=== PATIENT | male | born 1995 | race Caucasian/White ===

== ENCOUNTER 2025-05-30 07:46 | Outpatient (REF) | payer BC, SELFPAY ==
[2025-05-30 12:30] LABS: Chlamydia pneumoniae PCR Not Detected (Not Detect.); Coronavirus 229E PCR Not Detected (Not Detect.); Coronavirus HKU1 PCR Not Detected (Not Detect.); Coronavirus NL63 PCR Not Detected (Not Detect.); Coronavirus OC43 PCR Not Detected (Not Detect.); RSV PCR Not Detected (Not Detect.); Rhino/Enterovirus PCR Not Detected (Not Detect.)
[2025-05-30 13:00] LABS: Influenza A H1 PCR Not Detected (Not Detect.); Influenza A H1-2009 PCR Not Detected (Not Detect.); Influenza A H3 PCR Not Detected (Not Detect.); SARS-CoV-2 PCR Detected (Not Detect.)
== END 2025-05-30 07:47 | disposition home or self-care (01) ==
LOC: HO.LAB 07:46
PROVIDERS: Physician Assistant; PCP Pediatrics
DX: J06.9 Acute upper respiratory infection, unspecified (principal); J01.90 Acute sinusitis, unspecified; R09.89 Other specified symptoms and signs involving the circulatory and respiratory systems; B97.89 Other viral agents as the cause of diseases classified elsewhere
CPT/HCPCS: 87633

== ENCOUNTER 2025-05-30 07:46 | Outpatient (AMB) | payer BC, SELFPAY ==
--- NOTE | 2025-05-30 07:48 | AM.OFFWIN_ITS ---
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 - Symptoms began after a dental procedur e with Novocaine, leading to sinus congestion and joint aches. - Sinus congestion is left-sided with ea r pressure and blockage, and the patient has a history of seasonal allergies. - Persistent chest congestion and cough have been present since symptom onset, with limited relief from OTC medications. - No fever, shortness of breath, or asth ma history reported. Physical Exam General: Cooperative, healthy appearing, comfortable and no acute distress Orientation/consciousness: Patient oriented x3 Limitations: No limitations Head: Normal to inspection Ears: Hearing grossly normal bilaterally, external ears normal, left TM with erythema, right TM normal Nose: Normal external nose present, Normal nares present and No nasal discharge present Face and sinus: Normal facial exam and Yes sinuses tender-maxillary bilateral Mouth: Normal oral and palatal mucosa present and moist mucous membranes Throat: Yes tonsils normal, Yes uvula midline. Posterior oropharynx erythema, no exudates Eyes: Appearance normal, both eyes and all related structures Neck: Normal visual inspection, full ROM Respiratory: Normal respiratory effort, able to speak in complete sentences, no respiratory distress, not tachypneic, no tripod positioning and no use of accessory muscles Skin: No rashes or lesions noted Neuro: Patient oriented x3 Extremities: Normal to inspection and Yes no clubbing, cyanosis or edema Review of Systems - General: Denies fever - Respiratory: Reports chest congestion and cough; denies dyspnea - ENT: Reports sinus congestion and ear pressure; denies sore throat - Allergic/Immunologic: Reports history of seasonal allergies All systems reviewed and are unremarkable except as noted in HPI Physical Exam Vital Signs: Last Vital Signs Temp 98.9 F 05/30/25 07:49 Pulse 69 05/30/25 07:49 Resp 16 05/30/25 07:49 BP 118/70 05/30/25 07:49 Pulse Ox 97 05/30/25 07:49 Oxygen Delivery Method Room Air 05/30/25 07:49 BMI result Body Mass Index 28.9 Assessment & Plan Assessment & Plan (1) Acute viral sinusitis: Code(s): J01.90 - Acute sinusitis, unspecified; B97.89 - Other viral agents as the cause of diseases classified elsewhere Plan: Plan Patient was informed and verbally consented to the use of an ambient scribe for clinic note documentation during this visit. Acute Viral Sinusitis - VSS, pt well appearing and PE remarkable for maxillary sinus tenderness - Conducted a viral panel to identify potential viral pathogens. - Recommended nasal irrigation and Flonase for symptomatic relief. - Prescribed SoluMedrol for sinus pressure and inflammation. - Advised use of Sudafed for additional relief, with instructions to obtain it from behind the pharmacy counter. Orders: Orders Resp Pathogen Panel - [facility] Today J06.9 - Acute upper respiratory infection, unspecified Medications: New methylprednisolone PO PER PKG DIR for 6 days 21 ea 0RF Coding Level of Care Code New Pt Level 3 (20924) Diagnoses Acute viral sinusitis J01.90; B97.89
--- OUTSIDE RECORDS SUMMARY | 2025-05-30 07:48 | XMS_ITS | Clinical Summary ---
Author Organization [facility] Address [address] [place] [phone] Phone Care Team Providers Care Clinical Geneticist Name Role Phone Unavailable Primary Care Provider Unavailabl e Immunizations Immunization Administration Dates Next Due DTaP 5 05/22/2000, 7,07/07/1995, 995,02/08/1995 Hep B, ped/adol 10/06/1995,01/06/1995,1994 Hib (PRP-T) 03/09/1996, 5,04/14/1995, 995 IPV 09/12/1996,04/14/1995,02/08/1995 MMR 05/22/2000,03/09/1996 Meningococcal Conj (Menactra) MCV4P 07/07/2006 OPV 05/22/2000 Tdap 07/07/2006 Varicella 01/11/2009,11/26/1998 Family History Relation Name Status Comments Father Alive Father: Hyperte nsion Mother Alive Mother: Hyperte nsion Social History Tobacco Use Types Packs/Day Years Used Date Smoking Tobacco: Never Assessed Sex and Gender Information Value Date Recorded Sex Assigned at Not on file Legal Sex Male 4:30 PM EDT Gender Identity Not on file Sexual Orientation Not on file Last Filed Vital Signs Vital Sign Reading Time Taken Comments Blood Pressure 140/78 05/12/2010 12:00 AM EDT Pulse - - Temperature - - Respiratory Rate - - Oxygen Saturation - - Inhaled Oxygen Concentration - - Weight 68.9 kg (152 lb) 05/12/2010 12:00 AM EDT Height 172.2 cm (5' 7.8 ) 05/12/2010 12:00 AM ED T Body Mass Index 23.25 05/12/2010 12:00 AM EDT Plan of Treatment Health Maintenance Due Date Last Done Comments Hepatitis B Vaccines (3 of 3 - 3-dose series) 12/01/1995 10/06/1995, 01/06/1995, 1994 DTaP,Tdap,and Td Vaccines (7 - Td or Tdap) 07/07/2016 07/07/2006, 05/22/2000, 12/11/1996, Additional history exists HPV Vaccines (1 - 3-dose SCDM series) 2021 Influenza Vaccines (#1) 2025 COVID-19 Vaccine (2024- season) 2025 HIB Vaccines Completed 03/09/1996, 06/23, 04/14/1995, Additional history exists IPV Vaccines Completed 05/22/2000, 08/24, 04/14/1995, Additional history exists MMR Vaccines Completed 05/22/2000, 03/09/1996 Meningococcal Vaccine Aged Out 07/07/2006 No ever phil eligible based on patient's age to complete this topic Varicella Vaccines Completed 01/11/2009, 11/26/1998 Hepatitis A Vaccines Aged Out No long er eligible based on patient's age to complete this topic Men B Vaccine Aged Out No longer elig ible based on patient's age to complete this topic Pneumococcal Vaccine Aged Out No long er eligible based on patient's age to complete this topic
--- OUTSIDE RECORDS SUMMARY | 2025-05-30 07:48 | XMS_ITS | Clinical Summary ---
Author Organization [facility] it Address [address] [place] [address] Care Team Providers Care Clamp Forklift Operator Name Role Phone Unavailable Primary Care Provider Unavailabl e Social History Tobacco Use Types Packs/Day Years Used Date Smoking Tobacco: Never Assessed Sex and Gender Information Value Date Recorded Sex Assigned at Not on file Legal Sex Male 12:46 AM EST Gender Identity Not on file Sexual Orientation Not on file Plan of Treatment Health Maintenance Due Date Last Done Comments DTaP,Tdap,and Td Vaccines (1 - Tdap) 2013 Hepatitis B Vaccines (1 of 3 - 19+ 3-dose series) 2013 HPV Vaccines (1 - 3-dose SCD M series) 2021 Depression Screening 08/23/2024 COVID-19 Vaccine (1 - 2023-2 5 season) 2025 Influenza Vaccine (#1) 2025 RSV Immunization Adult Patie nts (1 - 1-dose 75+ series) 2069 HIB Vaccines Aged Out No longer eligi ble based on patient's age to complete this topic Hepatitis A Vaccines Aged Out No long er eligible based on patient's age to complete this topic IPV Vaccines Aged Out No longer eligi ble based on patient's age to complete this topic MMR Vaccines Aged Out No longer eligi ble based on patient's age to complete this topic Meningococcal ACWY Vaccine Aged Out N o longer eligible based on patient's age to complete this topic Meningococcal B Vaccine Aged Out No l onger eligible based on patient's age to complete this topic Pneumococcal Vaccine: Pediat rics (0 to 5 Years) and At-Risk Patients (6 to 49 Years) Aged Out No longer eligible b ased on patient's age to complete this topic RSV Immunization Patients Un yoselin 20 months Aged Out No longer eligible b ased on patient's age to complete this topic Varicella Vaccines Aged Out No longer eligible based on patient's age to complete this topic
--- OUTSIDE RECORDS SUMMARY | 2025-05-30 07:48 | XMS_ITS | Encounter Summary ---
Author Organization [facility] Address [address] [place] [phone] Phone Care Team Providers Care Waiter/Waitress Bar Name Role Phone Elijah Swartz MD Primary Care Provider Sathya edge Encounter Details Date Type Department Care Team (Late st Contact Info) Description 04/08/2017 Conversion Encounter [facility] - [address] [address] Social History Tobacco Use Types Packs/Day Years Used Date Smoking Tobacco: Never Assessed Sex and Gender Information Value Date Recorded Sex Assigned at Not on file Legal Sex Male 4:30 PM EDT Gender Identity Not on file Sexual Orientation Not on file documented as of this encounter Plan of Treatment Not on file documented as of this encounter Visit Diagnoses Not on filedocumented in this encounter Care Teams Waiter/Waitress Bar Relationship Specialty Start Date End Date Elijah Swartz MD PCP - General 04/02/17 12/05/22 documented as of this encounter
[2025-05-30 07:49] VITALS: BP 118/70; PULSE 69; RESP 16; TEMP 37.2; O2SAT 97; BMI 28.9
== END 2025-05-30 08:15 | disposition home or self-care (01) ==
PROVIDERS: PCP Pediatrics; Visit Provider Physician Assistant
DX: J01.90 Acute sinusitis, unspecified (principal); B97.89 Other viral agents as the cause of diseases classified elsewhere